=== PATIENT | female | born 1980 | race African-American/Black ===

== ENCOUNTER 2018-12-18 08:30 | Day surgery (SDC) | payer BC ==
[~2018-12-18 08:30] MED LIST: Buffered Lidocaine 1% SYRIN* 1 ML/SYRINGE INTRADERM ONE; Dexamethasone IV* 4 MG/ML 1 ML (4 MG) IV SLOW PU ONE; Famotidine IV* 10 MG/ML 2 ML (20 mg) IV ONE; Lactated Ringers 1000 ML Bag* 1,000 ML IV SCH
[2018-12-18] MEDS ORDERED: Buffered Lidocaine 1% SYRIN* 1 ML/SYRINGE INTRADERM ONE ×2 (08:42→10:01)
[2018-12-18] MEDS ORDERED: Famotidine IV* 10 MG/ML 2 ML (20 mg) ONE (08:42)
[2018-12-18] MEDS ORDERED: Dexamethasone IV* 4 MG/ML 1 ML (4 MG) ONE (08:42)
[2018-12-18] MEDS ORDERED: fentaNYL* 50 MCG/ML 2 ML VIAL (100 MCG VIAL) ONE (09:19)
[2018-12-18] MEDS ORDERED: Midazolam* 1 MG/ML 2 ML VIAL (2 MG) ONE (09:19)
[2018-12-18] MEDS ORDERED: Heparin VIAL(*) 5000 UNITS/ML VIAL (FIVE THOUSAND) ONE (10:23)
[2018-12-18] MEDS ORDERED: fentaNYL* 50 MCG/ML 2 ML VIAL (100 MCG VIAL) IV PRN (11:04)
[2018-12-18] MEDS ORDERED: DiMENhydriNATE IV* 50 MG/ML VIAL IV PUSH PRN (11:04)
[2018-12-18] MEDS ORDERED: Naloxone* 0.4 MG/ML 1 ML VIAL IV PRN (11:04)
[2018-12-18] MEDS ORDERED: Propofol* 10 MG/ML 20 ML BTL ONE (11:08)
[2018-12-18] MEDS ORDERED: Lidocaine 2% PF * 5 ML VIAL ONE (11:08)
[2018-12-18] MEDS ORDERED: Ketorolac INJ* 30 MG/ML 1 ML VIAL ONE (11:08)
[2018-12-18] MEDS ORDERED: Ondansetron INJ* 2 MG/ML VIAL ONE (11:08)
[2018-12-18] MEDS ORDERED: Ibuprofen TAB* 600 MG PO PRN (11:29)
[2018-12-18] MEDS ORDERED: Lactated Ringers 1000 ML Bag* 1,000 ML IV SCH (12:00)
[2018-12-18 12:39] VITALS: BP 152/93
--- NOTE | 2018-12-24 17:25 | OP ---
CC: [facility] * DATE OF OPERATION: 12/18/18 - [facility] DATE OF : 78 SURGEON: Jaziel Barillas MD. ANESTHESIOLOGIST: Dr. Kennedy. ANESTHESIA: General endotracheal anesthesia. PRE-OP DIAGNOSES: Irregular heavy menses, thickened endometrium. POST-OP DIAGNOSES: Irregular heavy menses, thickened endometrium. OPERATIVE PROCEDURE: 1. Dilation hysteroscopy. 2. MyoSure polypectomy. 3. Curettage. ESTIMATED BLOOD LOSS: Minimal, less than 20 cc. SPECIMEN: Endometrial polyp and endometrial curettings. FLUIDS: Per Anesthesia. DRAINS: None. FINDINGS: Midline uterus and cervix. Uterus sounds to 11. On the posterior uterine wall, there is a fibroid that deviates the cervical canal anteriorly. No adnexal masses were palpated and there was overall normal-appearing endometrium with two small polyps, which were removed with the MyoSure. COMPLICATIONS: None. COUNTS: Sponge, lap and needle count correct x2. CONDITION: The patient was brought to the recovery room awake and in stable condition. DESCRIPTION OF PROCEDURE: The patient was brought to the operating room. When general anesthesia was found to be adequate, the patient was prepped and draped in the usual sterile fashion in the dorsal lithotomy position. Time-out was performed. Exam under anesthesia was performed with the above findings noted. Weighted speculum was placed in the vagina. The anterior lip of the cervix was grasped with the single-tooth tenaculum and the cervix was gently and easily dilated with graduated dilators. The hysteroscope was introduced with the above findings noted. Using the MyoSure, the two visible polyps were removed. The MyoSure was removed. Curettage was performed. Endometrial curettings were sent to pathology with the endometrial polyp. The single-tooth tenaculum was removed from the cervix. Excellent hemostasis was noted. All instruments were removed from the vagina and the patient was brought to the recovery room awake and in stable condition. [id number]/[facility] #: [id number] [facility]
== END 2018-12-18 12:50 | disposition home or self-care (01) ==
LOC: OR 08:30
PROVIDERS: ATTEND Obstetrics & Gynecology
DX: N92.1 Excessive and frequent menstruation with irregular cycle (principal); N85.8 Other specified noninflammatory disorders of uterus; D50.8 Other iron deficiency anemias; I10 Essential (primary) hypertension; Z72.0 Tobacco use; Z86.718 Personal history of other venous thrombosis and embolism
CPT/HCPCS: 81025; 88305; J1100; J1644; J1885; J2250; J2405; J2704; J3010